=== PATIENT | male | born 1980 | race Caucasian/White ===

== ENCOUNTER → 2016-08-16 | Outpatient (CLI) | payer OTHER ==
[~2016-08-16] MED LIST: ADAL40KI INJ; CYCL0.052 OP; LITH1TAB PO; LORA-741 PO; MULT-506 PO
--- NOTE | 2016-08-16 13:48 | DIAGNOSTIC IMAGING REPORT ---
PELVIS AND BILATERAL HIP RADIOGRAPHS CLINICAL HISTORY: Ulcerative colitis. Sacroiliitis. Bilateral hip pain. COMPARISON: Hip radiographs September 28, [address] of the abdomen and pelvis February 07, 2015. FINDINGS: The sacroiliac joints are intact without evidence for ankylosis. No fracture or suspicious lesion is identified within the pelvis or the hips. There is mild joint space narrowing of both hips with osteophytosis. Pelvic calcifications likely reflect phleboliths. IMPRESSION: 1. Mild osteoarthritis of both hips. 2. Unremarkable radiographic appearance of the sacroiliac joints although erosions may be occult by radiography. Electronically signed by: Alfa Rodriguez M.D. 08/16/2016 1:46 PM
== END | disposition home or self-care (01) ==
LOC: C.RAD1850 12:44
PROVIDERS: ATTEND Internal Medicine Rheumatology
DX: K51.90 Ulcerative colitis, unspecified, without complications (principal); M46.1 Sacroiliitis, not elsewhere classified

== ENCOUNTER → 2017-02-16 | Outpatient (CLI) | payer BC ==
[2017-02-16 13:28] LABS: HEMATOCRIT 42.6 % (42-52); MEAN CELL VOLUME 91.6 fL (80-100); MEAN CORPUSCULAR HEMOGLOBIN 31.4 pg (25-34); MEAN CORPUSCULAR HGB CONC 34.3 g/dl (32-36); MEAN PLATELET VOLUME 10.6 fL (7.4-10.4); PLATELET COUNT 217 K/uL (130-400); RED BLOOD COUNT 4.65 M/uL (4.7-6.1); WHITE BLOOD COUNT 4.66 K/uL (4.8-10.8)
[2017-02-16 14:06] LABS: ESTIMATED AVERAGE GLUCOSE 88 mg/dl; HA1C FLAG Normal (Normal)
[2017-02-16 14:30] LABS: ALT/SGPT 28 U/L (12-78); AST/SGOT 23 U/L (15-37); BLOOD UREA NITROGEN 16 mg/dl (7-18); BUN/CREATININE RATIO 13.6 (10-20); CALCIUM 9.3 mg/dl (8.5-10.1); CARBON DIOXIDE 23 mmol/L (21-32); CHLORIDE 110 mmol/L (98-107); GLUCOSE 78 mg/dl (70-99); MAGNESIUM 2.2 mg/dl (1.8-2.4); POTASSIUM 3.5 mmol/L (3.5-5.1); SODIUM 139 mmol/L (136-145); TRIGLYCERIDES 56 mg/dl (0-150); VERY LOW DENSITY LIPOPROT CALC 11 mg/dl
[2017-02-16 14:38] LABS: ALB/GLOB RATIO 1.1 (0.9-2); ALKALINE PHOSPHATASE 54 U/L (45-117); CHOLESTEROL 128 mg/dl (0-200); HDL CHOLESTEROL 63 mg/dl; THYROID STIMULATING HORMONE 0.947 uIu/ml (0.300-4.500)
== END | disposition home or self-care (01) ==
LOC: C.LABBC 09:49
PROVIDERS: ATTEND Internal Medicine Cardiovascular Disease
DX: R07.9 Chest pain, unspecified (principal); R00.2 Palpitations

== ENCOUNTER → 2017-11-05 | Outpatient (CLI) | payer BC ==
[2017-11-05 12:55] LABS: BASO % 0.5 %; BASO ABS # 0.02 K/uL (0-0.2); EOS ABS # 0.08 K/uL (0-0.5); HEMATOCRIT 39.9 % (42-52); HEMOGLOBIN 14.7 g/dL (14.0-18.0); LYMPH % 45.3 %; LYMPH ABS # 1.85 K/uL (1.2-3.4); MEAN CELL VOLUME 91.7 fL (80-100); MEAN CORPUSCULAR HEMOGLOBIN 33.8 pg (25-34); MEAN CORPUSCULAR HGB CONC 36.8 g/dl (32-36); MEAN PLATELET VOLUME 10.9 fL (7.4-10.4); MONO % 11.8 %; MONO ABS # 0.48 K/uL (0.11-0.59); NEUT % 40.4 %; NEUT ABS # 1.65 K/uL (1.4-6.5); PLATELET COUNT 197 K/uL (130-400); RED CELL DISTRIBUTION WIDTH CV 11.6 % (11.5-14.5); RED CELL DISTRIBUTION WIDTH SD 39.1 fL (36.4-46.3); WHITE BLOOD COUNT 4.08 K/uL (4.8-10.8)
[2017-11-05 13:27] LABS: ALT/SGPT 22 U/L (12-78); BLOOD UREA NITROGEN 16 mg/dl (7-18); CALCIUM 8.7 mg/dl (8.5-10.1); CARBON DIOXIDE 25 mmol/L (21-32); CHOLESTEROL 110 mg/dl (0-200); CREATININE 1.07 mg/dl (0.60-1.40); GLUCOSE 78 mg/dl (70-99); POTASSIUM 3.6 mmol/L (3.5-5.1); SODIUM 140 mmol/L (136-145)
[2017-11-05 13:38] LABS: ALKALINE PHOSPHATASE 71 U/L (45-117); AST/SGOT 17 U/L (15-37); LDL CHOLESTEROL CALCULATED 50 mg/dl; TOTAL PROTEIN 7.9 gm/dl (6.4-8.2)
== END | disposition home or self-care (01) ==
LOC: C.LAB 11:30
PROVIDERS: ATTEND Nurse Practitioner Family
DX: F31.13 Bipolar disorder, current episode manic without psychotic features, severe (principal); H53.9 Unspecified visual disturbance; R51 Headache; Z78.9 Other specified health status

== ENCOUNTER 2025-07-29 17:54 | Observation (INO) ==
--- NOTE | 2025-07-29 18:26 | Emergency Department Note ---
Impression & Plan Herpes zoster, Cellulitis ED Provider Note NAME: LEXIS PRESLEY AGE: 44 SEX: M : 1980 ARRIVES VIA: Walk-In INFORMANT: Patient, ED PROVIDER(S): Guero Kennedy DO CHIEF COMPLAINT: Rash HPI: The patient is a 44-year-old male who presented to the emergency department for an evaluation. The patient has been treated for 5 days for a rash on his face by his primary care physician. This was felt to be secondary to shingles. The patient does take Humira and has had bilateral shingles in the past. It is mostly on his face. The patient was sent to the emergency department today from the primary care physician's office to receive IV antivirals and to be admitted. ROS: See above HPI for pertinent positives & negatives. A total of 10 systems reviewed and were otherwise negative. PAST MEDICAL HISTORY: See Below PAST SURGICAL HISTORY: See Below FAMILY HISTORY: See Below SOCIAL HISTORY: See Below HOME MEDICATIONS: See Below ALLERGIES: See Below VITALS: See Below PHYSICAL EXAMINATION: GENERAL: Patient is awake alert in no acute distress patient is resting comfortably and showing no signs of anxiety EYES: The conjunctivae are clear. The pupils are round and reactive. EARS, NOSE, MOUTH AND THROAT: The nose is without any evidence of any deformity. NECK: The neck is nontender and supple. RESPIRATORY: Normal respiratory effort is noted there is no evidence of wheezing rhonchi or rales CARDIOVASCULAR: Regular rate and rhythm noted there no murmurs rubs or gallops normal S1 normal S2. GASTROINTESTINAL: The abdomen is soft. Abdomen is nontender. MUSCULOSKELETAL/EXTREMITIES: There is no evidence of gross deformity full range of motion is noted in the hips and shoulders. SKIN: There is a pustular rash over the face that is bilateral. There is no involvement of the eye that is obvious. There is no mucous membrane involvement. NEUROLOGIC: Patient is awake alert and oriented x3. Gait was steady. MEDICAL DECISION MAKING: The patient is a 44-year-old male who presented to the emergency department for an evaluation of rash. The patient was diagnosed with shingles as an outpatient. He does take a biologic medication and was started on valacyclovir. The patient returns emergency department after being seen in his outpatient primary care physician's office. He was sent to the emergency department for further evaluation and for possible admission. I discussed the case with the outpatient covering physician as well as the [facility] hospitalist. Triage Nursing notes reviewed. Prior medical records reviewed Vital Signs: reviewed and remarkable for no significant abnormalities Differential diagnosis: Contact dermatitis, viral exanthem, urticaria, allergic reaction, Keen- Deshawn syndrome, toxic epidermal necrolysis, erythema multiforme, cellulitis, scabies, HSV, varicella, zoster, eczema, staph scalded skin syndrome, fungal infection, as well as other pathologies. ER treatment provided: See below Diagnostics interpreted by me: ECG: none Cardiac Monitoring: An order was placed for continuous cardiac monitoring. The monitor shows a rate of 74 bpm with sinus rhythm. Laboratory studies: As stated above and show below. Imaging studies: See below. Radiographic imaging was reviewed by myself Consultation(s): I discussed this case with Dr. Alvarez who is on for the [facility]. I discussed this case with Dr. Muhammad [facility]. Past Med/Surg History Problem List (Updated 07/29/25 @ 19:50 by Guero Kennedy DO) Cellulitis (Acute) Herpes zoster (Acute) Hypertrophy of both inferior nasal turbinates Nasal septal deviation External nasal valve collapse, static Mechanical low back pain Arthritis Vitamin D deficiency Non-specific colitis Lumbago Left knee pain IBS (irritable bowel syndrome) Diarrhea Bipolar disorder Arthritis Tear of MCL (medial collateral ligament) of knee ACL tear Ulcerative colitis on humira Mass of left forearm Peroneal tendinitis, right leg Dysfunction of left rotator cuff Paresthesia (Acute) Non-cardiac chest pain (Acute) Abdominal pain, left upper quadrant (Acute) Abdominal pain (Acute 09/18/13) Medical History Hx of bipolar disorder Splenic infarct hx, years ago, seen on imaging, nothing further IBS (irritable bowel syndrome) Ulcerative colitis Arthritis Vertigo hx, no recent issues Palpitations hx, cardiac testing, no findings Dysphagia hx, "once in awhile with breads" Surgical History History of nasal septoplasty w/bilateral turbinate reduction and repair of bilateral nasal vestibular stenosis-10/04/24-Dr. Dixon Hx of cardiac cath ~2013 or earlier, palpitations, [facility] [place], no stents; no longer sees cardiology Hx of colonoscopy most recent 2022 Status post excisional biopsy 12/18/2020 Family History Father Hypertension Sister Breast cancer Mother Cancer Brother Diabetes Grandmother (Maternal) Colorectal cancer Other Stroke Social History Smoking Status: Never smoker Second Hand Exposure: No; Do You Dip or Chew Tobacco: No; Hx Alcohol Use: Yes Alcohol Intake Frequency: Monthly or Less Hx Substance Use: No Preferred Language: Wolof Communication Ability: Effective Deck Cadet Required: No Beliefs That Will Affect Care: None marital status: Current Living Situation: Spouse and Family current occupational status: employed current occupation: [employer]) How many Children do You have: 2 Feels Safe at Home: Yes Diet: vegan during the past year weight has: remained stable Assistive Devices: Glasses Allergies Allergies Allergy/AdvReac Type Severity Reaction Status Date / Time No Known Drug Allergies Allergy Verified 07/29/25 19:29 DUST MITES Allergy Intermediate Congested Uncoded 07/29/25 19:30 Home Meds Home Medications Medication Instructions Recorded Confirmed adalimumab 40 mg/0.8 mL 40 mg subcut Q14D 02/24/21 07/29/25 subcutaneous pen kit (Humira Pen) multivitamin 1 tab PO DAILY 11/18/22 07/29/25 tobramycin 0.3 %-lotepred 0.5 % 1 drp ophthalmic (eye) .COMPLEX 06/28/25 07/29/25 eye drops,suspension PRN Eye Irritation cholecalciferol (vitamin D3) 50 50 mcg PO DAILY 07/29/25 07/29/25 mcg (2,000 unit) capsule (Vitamin D3) valacyclovir 1 gram tablet 1,000 mg PO TID 07/29/25 07/29/25 Previous Rx's Medication Instructions Recorded albuterol sulfate 90 mcg/actuation 2 puff inhalation Q4H PRN 03/15/25 aerosol inhaler shortness of breath #1 inhaler azelastine 137 mcg (0.1 %) nasal 2 spray intranasal DAILY #30 mL 03/15/25 spray mometasone 100 mcg/actuation HFA 2 inh inhalation DAILY #1 inhaler 03/15/25 aerosol inhaler (Asmanex HFA) Results & Data (ED) Vital Signs Vital Signs - 24 hr 07/29/25 17:55 07/29/25 18:36 07/29/25 18:43 Temperature 36.6 C Temperature Source Temporal Artery Scan Pulse Rate 67 68 Pulse Rate [Apical] 72 Pulse Rhythm [Apical] Regular Pulse Strength [Apical] Normal Respiratory Rate 18 22 Respiratory Effort / Characteristics Non-Labored Spontaneous Respiratory Depth Normal Respiratory Pattern Regular Blood Pressure 112/73 Blood Pressure [Right Arm] 104/73 Blood Pressure Mean 86 Blood Pressure Mean [Right Arm] 83 Blood Pressure Position [Right Arm] Sitting Pulse Oximetry 99 98 Oxygen Delivery Method Room Air Sepsis Recent Fever Within 48 Hours No Sepsis New/Unexplained Change in Mental Status N/A Sepsis Action Taken by Nursing No Action Required 07/29/25 19:21 Temperature Temperature Source Pulse Rate Pulse Rate [Apical] 74 Pulse Rhythm [Apical] Regular Pulse Strength [Apical] Normal Respiratory Rate 18 Respiratory Effort / Characteristics Non-Labored Spontaneous Respiratory Depth Normal Respiratory Pattern Regular Blood Pressure Blood Pressure [Right Arm] 136/83 Blood Pressure Mean Blood Pressure Mean [Right Arm] 100 Blood Pressure Position [Right Arm] Sitting Pulse Oximetry 100 Oxygen Delivery Method Room Air Sepsis Recent Fever Within 48 Hours Sepsis New/Unexplained Change in Mental Status Sepsis Action Taken by Assisted Medications Current Medication List: was personally reviewed by me Laboratory Data Attestation: I reviewed the patient's lab results. 07/29/25 18:27 07/29/25 18:27 Lab Results 07/29/25 07/29/25 Range/Units 18:27 18:31 WBC 6.79 (4.8-10.8) K/ul RBC 4.40 L (4.70-6.10) M/uL Hgb 14.5 (14.0-18.0) g/dL Hct 39.7 L (42.0-52.0) % MCV 90.2 (80.0-100.0) fL MCH 33.0 (25.0-34.0) pg MCHC 36.5 H (32.0-36.0) g/dL RDW Std Deviation 36.1 L (36.4-46.3) fL RDW Coeff of Sugar 11.4 L (11.5-14.5) % Plt Count 346 (130-400) K/uL MPV 9.6 (9.4-12.4) fL Immature Gran % (Auto) 0.4 % Neut % (Auto) 40.2 % Lymph % (Auto) 45.2 % [place] % (Auto) 9.6 % Eos % (Auto) 4.0 % Baso % (Auto) 0.6 % Neut # (Auto) 2.73 (1.40-6.50) K/uL Lymph # (Auto) 3.07 (1.20-3.40) K/uL [place] # (Auto) 0.65 H (0.11-0.59) K/uL Eos # (Auto) 0.27 (0.00-0.50) K/uL Baso # (Auto) 0.04 (0.00-0.20) K/uL Immature Gran # (Auto) 0.03 (0.01-0.20) K/uL ESR 25 H (0-15) mm/hr Sodium 138 (136-145) mmol/L Potassium 3.7 (3.5-5.1) mmol/L Chloride 108 H (98-107) mmol/L Carbon Dioxide 23 (21-32) mmol/L Anion Gap 7 (3-11) BUN 20 (6-23) mg/dl Creatinine 1.18 (0.6-1.4) mg/dl Est Cr Clr Drug Dosing 100.1 ml/min eGFR 79.01 BUN/Creatinine Ratio 16.9 (10-20) Glucose 82 (70-99(Fasting)) mg/dl Lactate 1.0 (0.4-2.0) mmol/L Calcium 9.5 (8.6-10.3) mg/dl Total Bilirubin 0.5 (0.2-1.0) mg/dl AST 15 (13-39) U/L ALT 9 (7-52) U/L Alkaline Phosphatase 49 (34-104) U/L Total Protein 7.9 (6.0-8.3) gm/dl Albumin 4.0 (3.4-5.0) gm/dl Globulin 3.9 (2.5-4.0) gm/dl Albumin/Globulin Ratio 1.0 (0.9-2) Procalcitonin < 0.02 (0-0.5) ng/ml Urine Color Yellow Urine Appearance Clear (Clear) Urine pH 7.5 (4.5-7.5) Ur Specific [place] 1.019 (1.000-1.030) Urine Protein Negative (Negative) Urine Glucose (UA) Negative (Negative) Urine Ketones Trace H (Negative) Urine Blood Negative (Negative) Urine Nitrite Negative (Negative) Urine Bilirubin Negative (Negative) Urine Urobilinogen Negative (Negative) Ur Leukocyte Esterase Negative (Negative) Urine Comment Administered Medications Discontinued Medications Ceftriaxone Sodium (Rocephin) 2,000 mg in 50 mls @ 100 mls/hr IV NOW STA Stop: 07/29/25 19:45 Last Admin: 07/29/25 19:29 Dose: 100 mls/hr Documented By: YVES Discharge Plan Visit Data Chief Complaint: Rash Stated Complaint: SHINGLES ED Provider: Guero Kennedy Discharge Problem: Herpes zoster, Cellulitis Patient Disposition: Being Evaluated by Hospitalist Condition: Fair Forms Stand Alone Forms: My [facility] cheerapp Prescriptions Prescriptions: No Action Humira Pen 40 mg/0.8 mL pen injector kit 40 mg subcut Q14D Patient Comments: next injection around 07/14/24 tobramycin-lotepred 0.3-0.5 % drops,suspension 1 drp ophthalmic (eye) .COMPLEX PRN (Reason: Eye Irritation) Rx Instructions: 1-2 drops to affected eye PRN; while awake azelastine 137 mcg (0.1 %) spray,non-aerosol 2 spray intranasal DAILY Qty: 30 11RF albuterol sulfate 90 mcg/actuation HFA aerosol inhaler 2 puff inhalation Q4H PRN (Reason: shortness of breath) Qty: 1 3RF Asmanex HFA 100 mcg/actuation HFA aerosol inhaler 2 inh inhalation DAILY Qty: 1 11RF multivitamin Tablet 1 tab PO DAILY valacyclovir 1 gram tablet 1,000 mg PO TID Rx Instructions: FOR 7 DAY; PATIENT IS ON DAY 6 WITH FOUR TABLETS REMAINING cholecalciferol (vitamin D3) [Vitamin D3] 50 mcg (2,000 unit) Capsule 50 mcg PO DAILY Referrals Referrals: PCP,NO [Primary Care Provider] -
[2025-07-29 18:45] LABS: Hematocrit (blood only) 39.7 % (42.0-52.0); Hemoglobin 14.5 g/dL (14.0-18.0); Immature Granulocytes # (auto) 0.03 K/uL (0.01-0.20); Immature Granulocytes % (auto) 0.4 %; Mean Corpuscular Hemoglobin 33.0 pg (25.0-34.0); Mean Corpuscular Volume 90.2 fL (80.0-100.0); Platelet Count 346 K/uL (130-400); RDW Standard Deviation 36.1 fL (36.4-46.3); Red Blood Count 4.40 M/uL (4.70-6.10); White Blood Count 6.79 K/ul (4.8-10.8)
[2025-07-29 18:51] LABS: Appearance Urine Clear (Clear); Glucose Urine UA Negative (Negative)
[2025-07-29 19:02] LABS: Alanine Aminotransferase 9 U/L (7-52); Albumin Globulin Ratio 1.0 (0.9-2); Albumin Level 4.0 gm/dl (3.4-5.0); Alkaline Phosphatase 49 U/L (34-104); Anion Gap 7 (3-11); Bilirubin,Total 0.5 mg/dl (0.2-1.0); Blood Urea Nitrogen 20 mg/dl (6-23); Calcium 9.5 mg/dl (8.6-10.3); Carbon Dioxide 23 mmol/L (21-32); Chloride 108 mmol/L (98-107); Creatinine Clr Calc Pharmacy 100.1 ml/min; Globulin 3.9 gm/dl (2.5-4.0); Glucose 82 mg/dl (70-99(Fasting)); Potassium 3.7 mmol/L (3.5-5.1); Sodium 138 mmol/L (136-145); Total Protein 7.9 gm/dl (6.0-8.3)
[2025-07-29] MEDS: cefTRIAXone SODIUM 2,000 MG/50 ML BAG IV STA (19:29)
--- NOTE | 2025-07-29 20:07 | History & Physical Report ---
Date of Service July 29, 2025 Assessment & Plan (1) Herpes zoster: (2) Cellulitis: Plan 44yo male with history of ulcerative colitis on adalimumab therapy presenting with worsening zoster rash. Patient has been taking Valacyclovir at home. Admission has been requested by patient's covering PCP for IV anti-virals due to immunocompromised status #Herpes Zoster- patient is afebrile, HD stable and non-toxic in appearance. Progressive rash -Observation to medical -Maintain isolation precautions -Acyclovir 950mg IV q 8 hours -Tylenol PRN pain #Possible cellulitis -Ceftriaxone 2gm IV daily History of Present Illness Chief Complaint: progression of facial rash Primary Care Provider: NO PCP Stas Pablo is a 44yo male with history of UC on Adalimumab injections presenting with progression of facial rash. Patient noted a blistering rash on the right side of his face approximately one week ago. He was seen by his PCP and started on Valcyclovir. He has been taking this as prescribed. Today patient noted worsening rash involving the left side of his face as well. He contacted the PCP and was directed to come to the ER due to concern for progressive infection, immunocompromised state. He had some pain and burning to the area initially but now the rash is more itchy. He denies sores in the mouth, no visual disturbances. No fever, chills, chest pain, cough, SOB In the ER patient is afebrile, HD stable, non-toxic in appearance ER Course: Ceftriaxone 2gm Acyclovir 700mg Allergies Allergy/AdvReac Type Severity Reaction Status Date / Time house dust mite Allergy Intermediate Congested Verified 07/29/25 21:40 No Known Drug Allergies Allergy Unknown Unknown Verified 07/29/25 21:40 Home Medications Medication Instructions Recorded Confirmed Type adalimumab 40 mg/0.8 mL 40 mg subcut Q14D 02/24/21 07/29/25 History subcutaneous pen kit (Humira Pen) multivitamin 1 tab PO DAILY 11/18/22 07/29/25 History albuterol sulfate 90 mcg/actuation 2 puff inhalation Q4H PRN 03/15/25 07/29/25 Rx aerosol inhaler shortness of breath #1 inhaler azelastine 137 mcg (0.1 %) nasal 2 spray intranasal DAILY #30 mL 03/15/25 07/29/25 Rx spray mometasone 100 mcg/actuation HFA 2 inh inhalation DAILY #1 inhaler 03/15/25 07/29/25 Rx aerosol inhaler (Asmanex HFA) tobramycin 0.3 %-lotepred 0.5 % 1 drp ophthalmic (eye) .COMPLEX 06/28/25 07/29/25 History eye drops,suspension PRN Eye Irritation cholecalciferol (vitamin D3) 50 50 mcg PO DAILY 07/29/25 07/29/25 History mcg (2,000 unit) capsule (Vitamin D3) valacyclovir 1 gram tablet 1,000 mg PO TID 07/29/25 07/29/25 History Past Med/Surg History Problem List Cellulitis (Acute) Herpes zoster (Acute) Hypertrophy of both inferior nasal turbinates Nasal septal deviation External nasal valve collapse, static Mechanical low back pain Arthritis Vitamin D deficiency Non-specific colitis Lumbago Left knee pain IBS (irritable bowel syndrome) Diarrhea Bipolar disorder Arthritis Tear of MCL (medial collateral ligament) of knee ACL tear Ulcerative colitis on humira Mass of left forearm Peroneal tendinitis, right leg Dysfunction of left rotator cuff Paresthesia (Acute) Non-cardiac chest pain (Acute) Abdominal pain, left upper quadrant (Acute) Abdominal pain (Acute 09/18/13) Medical History Hx of bipolar disorder Splenic infarct hx, years ago, seen on imaging, nothing further IBS (irritable bowel syndrome) Ulcerative colitis Arthritis Vertigo hx, no recent issues Palpitations hx, cardiac testing, no findings Dysphagia hx, "once in awhile with breads" Surgical History History of nasal septoplasty w/bilateral turbinate reduction and repair of bilateral nasal vestibular stenosis-10/04/24-Dr. Dixon Hx of cardiac cath ~2013 or earlier, palpitations, [facility] [place], no stents; no longer sees car diology Hx of colonoscopy most recent 2022 Status post excisional biopsy 12/18/2020 Family History Father Hypertension Sister Breast cancer Mother Cancer Brother Diabetes Grandmother (Maternal) Colorectal cancer Other Stroke Social History Smoking Status: Never smoker Second Hand Exposure: No; Do You Dip or Chew Tobacco: No; Hx Alcohol Use: Yes Alcohol Intake Frequency: Monthly or Less Hx Substance Use: No Preferred Language: Lithuanian Communication Ability: Effective Customs Verifier Required: No Beliefs That Will Affect Care: None marital status: Current Living Situation: Spouse and Family current occupational status: employed current occupation: labor relations analyst How many Children do You have: 2 Feels Safe at Home: Yes Diet: vegan during the past year weight has: remained stable Assistive Devices: Glasses Review of Systems Review of Systems: All systems reviewed & are unremarkable except as noted in HPI & below Physical Exam Physical Exam: General: patient resting comfortably, NAD, non-toxic in appearance, AA&O x 4 Skin: patient with coalescing pustular rash with surrounding erythema, no fluid filled blisters, no bleeding HEENT: NC/AT, PERRL, EOMI, anicteric sclera, conjunctiva without injection, external ear normal to inspection and nontender, nares patent, moist mucus membranes, dentition intact, no oropharyngeal lesions, neck supple, trachea midline, no LAD, no thyromegaly, no JVD Heart: +S1/S2, regular, no m/r/g Lungs: equal air entry bilaterally, no rales/rhonchi/wheezes Abd: +BS, soft, NT/ND, no masses/organomegaly/ascites Ext: warm, 2+ pulses in UE/LE bilaterally, no clubbing/cyanosis or edema Neuro: nonfocal, patient AA&O x 4, speech intact, no facial droop, moving all extremities on command with equal strength 5/5 Results & Data Results & Data Vital Signs (Past 12 Hours) Vital Signs Temp Pulse Pulse Resp BP BP Pulse Ox 07/29/25 19:21 74 18 136/83 100 07/29/25 18:43 72 22 104/73 98 07/29/25 18:36 68 07/29/25 17:55 36.6 C 67 18 112/73 99 O2 Del Method 07/29/25 19:21 Room Air 07/29/25 18:43 Room Air 07/29/25 18:36 07/29/25 17:55 Laboratory Results Laboratory Results WBC 6.79 K/ul (4.8-10.8) 07/29/25 18: RBC 4.40 M/uL (4.70-6.10) L 07/29/25 18: Hgb 14.5 g/dL (14.0-18.0) 07/29/25 18: Hct 39.7 % (42.0-52.0) L 07/29/25 18: MCV 90.2 fL (80.0-100.0) 07/29/25 18: MCH 33.0 pg (25.0-34.0) 07/29/25 18: MCHC 36.5 g/dL (32.0-36.0) H 07/29/25 18: RDW Std Deviation 36.1 fL (36.4-46.3) L 07/29/25 18: RDW Coeff of Sugar 11.4 % (11.5-14.5) L 07/29/25 18: Plt Count 346 K/uL (130-400) 07/29/25 18: MPV 9.6 fL (9.4-12.4) 07/29/25 18: Immature Gran % (Auto) 0.4 % 07/29/25 18: Neut % (Auto) 40.2 % 07/29/25 18: Lymph % (Auto) 45.2 % 07/29/25 18: [place] % (Auto) 9.6 % 07/29/25 18: Eos % (Auto) 4.0 % 07/29/25 18: Baso % (Auto) 0.6 % 07/29/25 18: Neut # (Auto) 2.73 K/uL (1.40-6.50) 07/29/25 18: Lymph # (Auto) 3.07 K/uL (1.20-3.40) 07/29/25 18: [place] # (Auto) 0.65 K/uL (0.11-0.59) H 07/29/25 18: Eos # (Auto) 0.27 K/uL (0.00-0.50) 07/29/25 18: Baso # (Auto) 0.04 K/uL (0.00-0.20) 07/29/25 18: Immature Gran # (Auto) 0.03 K/uL (0.01-0.20) 07/29/25 18:27 ESR 25 mm/hr (0-15) H 07/29/25 18:27 Sodium 138 mmol/L (136-145) 07/29/25 18: Potassium 3.7 mmol/L (3.5-5.1) 07/29/25 18: Chloride 108 mmol/L (98-107) H 07/29/25 18: Carbon Dioxide 23 mmol/L (21-32) 07/29/25 18: Anion Gap 7 (3-11) 07/29/25 18: BUN 20 mg/dl (6-23) 07/29/25 18: Creatinine 1.18 mg/dl (0.6-1.4) 07/29/25 18: Est Cr Clr Drug Dosing 100.1 ml/min 07/29/25 18: eGFR 79.01 07/29/25 18: BUN/Creatinine Ratio 16.9 (10-20) 07/29/25 18: Glucose 82 mg/dl (70-99(Fasting)) 07/29/25 18: Lactate 1.0 mmol/L (0.4-2.0) 07/29/25 18: Calcium 9.5 mg/dl (8.6-10.3) 07/29/25 18: Total Bilirubin 0.5 mg/dl (0.2-1.0) 07/29/25 18: AST 15 U/L (13-39) 07/29/25 18: ALT 9 U/L (7-52) 07/29/25 18: Alkaline Phosphatase 49 U/L (34-104) 07/29/25 18: C-Reactive Protein < 0.50 mg/dl (0-0.5) 07/29/25 18: Total Protein 7.9 gm/dl (6.0-8.3) 07/29/25 18: Albumin 4.0 gm/dl (3.4-5.0) 07/29/25 18: Globulin 3.9 gm/dl (2.5-4.0) 07/29/25 18: Albumin/Globulin Ratio 1.0 (0.9-2) 07/29/25 18: Procalcitonin < 0.02 ng/ml (0-0.5) 07/29/25 18: Urine Color Yellow 07/29/25 18: Urine Appearance Clear (Clear) 07/29/25 18: Urine pH 7.5 (4.5-7.5) 07/29/25 18: Ur Specific [place] 1.019 (1.000-1.030) 07/29/25 18: Urine Protein Negative (Negative) 07/29/25 18: Urine Glucose (UA) Negative (Negative) 07/29/25 18: Urine Ketones Trace (Negative) H 07/29/25 18: Urine Blood Negative (Negative) 07/29/25 18: Urine Nitrite Negative (Negative) 07/29/25 18: Urine Bilirubin Negative (Negative) 07/29/25 18: Urine Urobilinogen Negative (Negative) 07/29/25 18: Ur Leukocyte Esterase Negative (Negative) 07/29/25 18: Urine Comment 07/29/25 18:31 PG Care Time/CCT Total # of Minutes Spent Total Time Spent with Patient: Total time spent is greater than 50% in coordination of care (as documented) at patient's floor/unit and/or counseling patient: Coding Level of Care Code 65549 INT INP/OBS CARE 2/55MIN Diagnoses Herpes zoster B02.9 Cellulitis L03.90
[2025-07-29] MEDS: ACYCLOVIR SOD 700 MG in DEXTROSE 5% 100 ML IV ONE (20:12)
[2025-07-29] MEDS ORDERED: DOCUSATE SODIUM 100 MG CAP PO PRN (21:35)
[2025-07-29] MEDS ORDERED: ACETAMINOPHEN 325 MG TAB PO PRN (21:35)
[2025-07-29] MEDS ORDERED: ONDANSETRON INJ 2 MG/ML 2 ML VIAL IV PRN (21:35)
[2025-07-29] MEDS: LACTATED RINGER'S 1,000 ML IV SCH (21:58)
[2025-07-30] MEDS: ACYCLOVIR SOD 950 MG in DEXTROSE 5% 250 ML IV SCH (03:57)
[2025-07-30 07:51] LABS: Hematocrit (blood only) 36.2 % (42.0-52.0); Hemoglobin 13.4 g/dL (14.0-18.0); Mean Corpuscular Hemoglobin 34.2 pg (25.0-34.0); Mean Corpuscular Volume 92.3 fL (80.0-100.0); Platelet Count 275 K/uL (130-400); RDW Standard Deviation 37.6 fL (36.4-46.3); Red Blood Count 3.92 M/uL (4.70-6.10); White Blood Count 5.44 K/ul (4.8-10.8)
[2025-07-30 08:05] LABS: Anion Gap 5.0 (3-11); Blood Urea Nitrogen 14.0 mg/dl (6-23); Calcium 8.8 mg/dl (8.6-10.3); Carbon Dioxide 23.0 mmol/L (21-32); Chloride 111.0 mmol/L (98-107); Creatinine Clr Calc Pharmacy 109.4 ml/min; Glucose 91.0 mg/dl (70-99(Fasting)); Potassium 4.1 mmol/L (3.5-5.1); Sodium 139.0 mmol/L (136-145)
[2025-07-30] MEDS: AZELASTINE HCL 0.1% NASAL 200 SPRAYS/27,400 MCG BTL SCH (08:20)
--- NOTE | 2025-07-30 08:21 | Infectious Disease Consult ---
Date of Consultation July 30, 2025 Assessment & Plan (1) Herpes zoster: Plan Problems: #Disseminated zoster #UC on adalimumab Micro: None Abx: Acyclovir 07/29 - present Ceftriaxone 07/29 - present 44 yo M with history of UC on adalimumab who presented on 07/29 with progression of herpes zoster facial rash. He noted a blistering rash on the R side of his face ~1 week ago, for which he saw his PCP and was started on valacyclovir on ~07/24. Pt reports that around 1-2 days after starting valacyclovir, he noticed spreading of the rash to his L face and forehead. On 07/29, he saw his PCP and was advised to present to the ED due to concern about the spreading rash. On presentation, pt was afebrile, VSS. Labs showed no leukocytosis. He was started on IV acyclovir. On my evaluation 07/30, pt reports no active drainage from his lesions, and has some scattered fluid filled blisters but overall improved. Feels the bilateral rash is improving compared to pictures he took of the rash from a few days ago. Recommendations: - Can continue acyclovir 10 mg/kg q8h. Lesions seem to be overall improving, so anticipate being able to switch back to valacyclovir 1 g PO TID later today or tomorrow through 08/07 (this would be a 14 day course including the PO valacyclovir he received prior to admission, or a 10 day course from initiation of IV acyclovir) - Discontinued ceftriaxone, think superimposed cellulitis is unlikely Discussed with Dr. Guy. Will sign off. Consultation Information Consultation was provided via telemedicine using two-way real-time interactive telecommunication between the patient and the telemedicine provider. For the duration of the visit, the provider was performing the assessment from a different facility than the patient. This includesuse of bluetooth stethoscope forauscultationperformed by the telepresenter that the telemedicine provider can hear if described in the physical exam. Apprentice Cook contact information: Please call [facility] . (Phone Number For Physician Use Only) After establishing a telemedicine visit, patient was: Patient was verified with two unique identifiers, Patient/authorized rep acknowledged consent and understanding and Gave permission to continue telehealth session Time Spent with Patient: Initial => 55 min History of Present Illness Reason for Consultation: Herpes zoster Attending Physician: Julian Guy MD History of Present Illness 44 yo M with history of UC on adalimumab who presented on 07/29 with progression of herpes zoster facial rash. He noted a blistering rash on the R side of his face ~1 week ago, for which he saw his PCP and was started on valacyclovir on ~07/24. Pt reports that around 1-2 days after starting valacyclovir, he noticed spreading of the rash to his L face and forehead. On 07/29, he saw his PCP and was advised to present to the ED due to concern about the spreading rash. On presentation, pt was afebrile, VSS. Labs showed no leukocytosis. He was started on IV acyclovir. On my evaluation 07/30, pt reports no active drainage from his lesions, and has some scattered fluid filled blister but overall improved. Feels the bilateral rash is improving compared to pictures he took of the rash from a few days ago. Allergies Allergy/AdvReac Type Severity Reaction Status Date / Time house dust mite Allergy Intermediate Congested Verified 07/29/25 21:40 No Known Drug Allergies Allergy Unknown Unknown Verified 07/29/25 21:40 Home Medications Medication Instructions Recorded Confirmed Type adalimumab 40 mg/0.8 mL 40 mg subcut Q14D 02/24/21 07/29/25 History subcutaneous pen kit (Humira Pen) multivitamin 1 tab PO DAILY 11/18/22 07/29/25 History albuterol sulfate 90 mcg/actuation 2 puff inhalation Q4H PRN 03/15/25 07/29/25 Rx aerosol inhaler shortness of breath #1 inhaler azelastine 137 mcg (0.1 %) nasal 2 spray intranasal DAILY #30 mL 03/15/25 07/29/25 Rx spray mometasone 100 mcg/actuation HFA 2 inh inhalation DAILY #1 inhaler 03/15/25 07/29/25 Rx aerosol inhaler (Asmanex HFA) tobramycin 0.3 %-lotepred 0.5 % 1 drp ophthalmic (eye) .COMPLEX 06/28/25 07/29/25 History eye drops,suspension PRN Eye Irritation cholecalciferol (vitamin D3) 50 50 mcg PO DAILY 07/29/25 07/29/25 History mcg (2,000 unit) capsule (Vitamin D3) valacyclovir 1 gram tablet 1,000 mg PO TID 07/29/25 07/29/25 History Patient History Medical History Hx of bipolar disorder Splenic infarct hx, years ago, seen on imaging, nothing further IBS (irritable bowel syndrome) Ulcerative colitis Arthritis Vertigo hx, no recent issues Palpitations hx, cardiac testing, no findings Dysphagia hx, "once in awhile with breads" Surgical History History of nasal septoplasty w/bilateral turbinate reduction and repair of bilateral nasal vestibular stenosis-10/04/24-Dr. Dixon Hx of cardiac cath ~2013 or earlier, palpitations, [facility] [place], no stents; no longer sees cardiology Hx of colonoscopy most recent 2022 Status post excisional biopsy 12/18/2020 Family History Father Hypertension Sister Breast cancer Mother Cancer Brother Diabetes Grandmother (Maternal) Colorectal cancer Other Stroke Social History Smoking Status: Never smoker Second Hand Exposure: No; Do You Dip or Chew Tobacco: No; Hx Alcohol Use: Yes Alcohol type: hard liquor Alcohol Intake Frequency: Monthly or Less Hx Substance Use: No Preferred Language: Turkmen Communication Ability: Effective Restuarant Crew Worker Required: No Beliefs That Will Affect Care: None marital status: Current Living Situation: Spouse Current Living Situation Comment: Home with current occupational status: employed current occupation: lab courier How many Children do You have: 2 Feels Safe at Home: Yes Diet: vegan during the past year weight has: remained stable Assistive Devices: Glasses Review of System A complete ROS was performed and is negative except as mentioned in the HPI. Physical Exam Physical Exam: GEN: Well-appearing, in NAD. HEENT: Normocephalic, atraumatic. RESP: No increased work of breathing SKIN: dry crusted rash on R face, scattered fluid filled blisters on L face, on erythematous base. Erythema of forehead without lesions. No lesions around eyes or ears. NEURO: Alert and oriented. Answers all questions appropriately. Speech not slurred. PSYCH: Normal mood, affect appropriate. Results & Data Vital Signs (Past 12 Hours) Vital Signs Temp Pulse Pulse Resp BP BP Pulse Ox 07/30/25 07:44 36.6 C 55 L 20 100/58 L 98 07/29/25 23:19 36.5 C 59 L 14 121/77 100 07/29/25 21:21 36.6 C 67 12 130/85 100 07/29/25 21:15 79 17 108/69 100 07/29/25 21:00 72 20 98/77 L 99 O2 Del Method 07/30/25 07:44 Room Air 07/29/25 23:19 Room Air 07/29/25 21:21 Room Air 07/29/25 21:15 Room Air 07/29/25 21:00 Laboratory Results Short CBC 07/29/25 07/30/25 Range/Units 18:27 07:13 WBC 6.79 5.44 (4.8-10.8) K/ul Hgb 14.5 13.4 L (14.0-18.0) g/dL Hct 39.7 L 36.2 L (42.0-52.0) % Plt Count 346 275 (130-400) K/uL BMP 07/29/25 07/30/25 18:27 07:13 Sodium 138 139 Potassium 3.7 4.1 Chloride 108 H 111 H Carbon Dioxide 23 23 BUN 20 14 Creatinine 1.18 1.08 Glucose 82 91 Calcium 9.5 8.8 Liver Function 07/29/25 Range/Units 18:27 Total Bilirubin 0.5 (0.2-1.0) mg/dl AST 15 (13-39) U/L ALT 9 (7-52) U/L Alkaline Phosphatase 49 (34-104) U/L Albumin 4.0 (3.4-5.0) gm/dl Urine 07/29/25 Range/Units 18:31 Urine Color Yellow Urine Appearance Clear (Clear) Urine pH 7.5 (4.5-7.5) Ur Specific Dolliver 1.019 (1.000-1.030) Urine Protein Negative (Negative) Urine Glucose (UA) Negative (Negative) Medications Administered Current Inpatient Medications Acetaminophen (Acetaminophen 325 Mg Tab) 650 mg PO Q4H PRN PRN Reason: Pain or Fever Stop: 08/28/25 21:34 Azelastine HCl (Azelastine Hcl 0.1% Nasal 200 Sprays/27,400 Mcg Btl) 2 sprays NA DAILY [facility] Stop: 08/29/25 08:59 Docusate Sodium (Docusate Sodium 100 Mg Cap) 100 mg PO BID PRN PRN Reason: Constipation Stop: 08/28/25 21:34 Ceftriaxone Sodium (Rocephin) 2,000 mg in 50 mls @ 100 mls/hr IV Q24H [facility] Stop: 08/06/25 19:59 Acyclovir Sodium 950 mg/ (Dextrose) 269 mls @ 250 mls/hr IV Q8H [facility]; Protocol Stop: 08/06/25 03:59 Last Infusion: 07/30/25 05:04 Dose: Infused Ondansetron HCl (Ondansetron Inj 2 Mg/Ml 2 Ml Vial) 4 mg IV Q6H PRN PRN Reason: Nausea And Vomiting Stop: 08/28/25 21:34
--- NOTE | 2025-07-30 09:35 | Hospitalist Progress Note ---
Date of Service July 30, 2025 Assessment & Plan (1) Herpes zoster: Plan: -Acyclovir 950mg IV q 8 hours -ID consult appreciated (2) Cellulitis: Plan: -con't rocephin Plan 44yo male with history of ulcerative colitis on adalimumab therapy presenting with worsening zoster rash. Patient has been taking Valacyclovir at home. Admission has been requested by patient's covering PCP for IV anti-virals due to immunocompromised status Admission and Anticipated Discharge Date Admission Date: July 29, 2025 Subjective No events overnight. Pt resting comfortably in bed. Review of Systems Review of Systems: CONST: Negative for fever, body aches and chills. HENT: Negative for neck pain/stiffness, headache, congestion, sore throat, swelling. EYES: Negative for discharge/pain or vision changes. RESP: Negative for cough/hemoptysis and shortness of breath. CV: Negative chest pain, difficulty breathing, palpitations. ABD: Negative pain, nausea, vomiting. : Negative increase frequency, dysuria, blood in urine or stool. MUSC: Negative for muscle aches, edema. SKIN: Negative rash, lesions/sores. NEURO: Negative headache, dizziness, weakness. Physical Exam Physical Exam: GENERAL APPEARANCE NAD, activity normal for age, well developed/ well nourished, no cyanosis, pallor, or diaphoresis. EYES lids/conjunctiva normal. EARS/NOSE/THROAT Mucous membranes moist, nares normal, lips/teeth normal uvula midline without oral pharyngeal erythema, exudate or swelling TMs normal bilaterally. No lymphangitis/lymphedema. HEAD/NECK normocephalic atraumatic, no facial trauma, neck is supple. RESPIRATORY respiratory effort normal, speaks in full sentences, no tripod position, no accessory muscle use. Lungs clear to auscultation without rhonchi, wheezes, rales CARDIAC Regular rate and rhythm, no edema. ABDOMINAL Soft, ND/NT. No evidence of fluid wave. No pulsatile masses on exam, rebound tenderness, Roca sign or pain over Mcburney's point. MUSCLES/EXTREMITIES No abnormal range of motion, no swelling. SKIN Warm, pink and dry. No rashes, dermatoses, petechiae or lesions. NEUROLOGICAL Speech is clear and appropriate. Normal level of consciousness. Gait and coordination are normal. 5/5 strength in all extremities. PSYCH Normal mood and affect. Judgement/competence is appropriate Results & Data Results & Data Vital Signs (Past 12 Hours) Vital Signs Temp Pulse Resp BP Pulse Ox O2 Del Method 07/30/25 07:44 36.6 C 55 L 20 100/58 L 98 Room Air 07/29/25 23:19 36.5 C 59 L 14 121/77 100 Room Air PG Care Time/CCT Total # of Minutes Spent Total Time Spent with Patient: Total time spent is greater than 50% in coordination of care (as documented) at patient's floor/unit and/or counseling patient: Coding Level of Care Code 75023 SUB INP/OBS CARE 2/35MIN Diagnoses Herpes zoster B02.9 Cellulitis L03.90
--- NOTE | 2025-07-30 15:39 | Discharge Summary ---
Discharge Summary Date of Service July 30, 2025 Principal Dx & Hospital Course #1 = Principal Diagnosis (1) Herpes zoster: -Acyclovir 950mg IV q 8 hours -ID consult appreciated -recommending d/c home on valacyclovir 1mg TID for 14 days (2) Cellulitis: -con't rocephin Plan 44yo male with history of ulcerative colitis on adalimumab therapy presenting with worsening zoster rash. Patient has been taking Valacyclovir at home. Admission has been requested by patient's covering PCP for IV anti-virals due to immunocompromised status Admission HPI Per Admitting Provider Stas Pablo is a 44yo male with history of UC on Adalimumab injections presenting with progression of facial rash. Patient noted a blistering rash on the right side of his face approximately one week ago. He was seen by his PCP and started on Valcyclovir. He has been taking this as prescribed. Today patient noted worsening rash involving the left side of his face as well. He contacted the PCP and was directed to come to the ER due to concern for progressive infection, immunocompromised state. He had some pain and burning to the area initially but now the rash is more itchy. He denies sores in the mouth, no visual disturbances. No fever, chills, chest pain, cough, SOB In the ER patient is afebrile, HD stable, non-toxic in appearance ER Course: Ceftriaxone 2gm Acyclovir 700mg Discharge Exam GENERAL APPEARANCE NAD, activity normal for age, well developed/ well nourished, no cyanosis, pallor, or diaphoresis. EYES lids/conjunctiva normal. EARS/NOSE/THROAT Mucous membranes moist, nares normal, lips/teeth normal uvula midline without oral pharyngeal erythema, exudate or swelling TMs normal bilaterally. No lymphangitis/lymphedema. HEAD/NECK normocephalic atraumatic, no facial trauma, neck is supple. RESPIRATORY respiratory effort normal, speaks in full sentences, no tripod position, no accessory muscle use. Lungs clear to auscultation without rhonchi, wheezes, rales CARDIAC Regular rate and rhythm, no edema. ABDOMINAL Soft, ND/NT. No evidence of fluid wave. No pulsatile masses on exam, rebound tenderness, Roca sign or pain over Mcburney's point. MUSCLES/EXTREMITIES No abnormal range of motion, no swelling. SKIN Warm, pink and dry. No rashes, dermatoses, petechiae or lesions. NEUROLOGICAL Speech is clear and appropriate. Normal level of consciousness. Gait and coordination are normal. 5/5 strength in all extremities. PSYCH Normal mood and affect. Judgement/competence is appropriate Discharge Plan Discharge Items Patient Disposition: Home - Self-Care Reason For Visit: ?ZOSTER Discharge Diagnosis: herpes zoster Condition on Discharge: Fair Activity: Resume your previous activity Non-emergency contact: Primary Care Provider Call non-emergency contact if: you have any medication questions Follow-up/Referrals: PCP,NO [Primary Care Provider] - Diet: Regular Addtl Attending Provider Instructions: Follow with with PMD in 1 week Pending Studies at Discharge: No Stand-Alone Forms: [employer], Smoking Cessation Medications and DC Order Prescriptions: New valacyclovir 1 gram tablet 1,000 mg PO TID 14 Days Qty: 42 0RF Continued Humira Pen 40 mg/0.8 mL pen injector kit 40 mg subcut Q14D Patient Comments: next injection around 07/14/24 tobramycin-lotepred 0.3-0.5 % drops,suspension 1 drp ophthalmic (eye) .COMPLEX PRN (Reason: Eye Irritation) Rx Instructions: 1-2 drops to affected eye PRN; while awake azelastine 137 mcg (0.1 %) spray,non-aerosol 2 spray intranasal DAILY Qty: 30 11RF albuterol sulfate 90 mcg/actuation HFA aerosol inhaler 2 puff inhalation Q4H PRN (Reason: shortness of breath) Qty: 1 3RF Asmanex HFA 100 mcg/actuation HFA aerosol inhaler 2 inh inhalation DAILY Qty: 1 11RF multivitamin Tablet 1 tab PO DAILY cholecalciferol (vitamin D3) [Vitamin D3] 50 mcg (2,000 unit) Capsule 50 mcg PO DAILY Discontinued valacyclovir 1 gram tablet 1,000 mg PO TID Rx Instructions: FOR 7 DAY; PATIENT IS ON DAY 6 WITH FOUR TABLETS REMAINING Discharge Orders: Discharge Order (Routine); Ordered 07/30/25 Ordered By: Julian Guy Admission Data Admit Date/Time: 07/29/25 20:15 Attending Provider: Julian Guy Admit Provider: Isabelle Muhammad Primary Care Provider: PCP,NO Other Providers: Isabelle Muhammad; Jana Limon; Hoa Bynum; Katarina Maria; Magdalena Romero; Agueda Vargas; Rhina Morgan Hospital Stay Data Consultations 07/29/25 19:48 ED Decision to Admit Stat 07/30/25 07:42 Consult Infectious Diseases Routine Pending Results Patient Have Any Pending Studies at Discharge: No Discharge Instructions Given to Patient (Per Discharging Provider) Follow with with PMD in 1 week Total Time Total Time Spent Total Time Spent (In Minutes): 50 Coding Level of Care Code 03609 INP/OBS DISCH >30 MIN Diagnoses Herpes zoster B02.9 Cellulitis L03.90
[2025-07-30] MEDS ORDERED: cefTRIAXone SODIUM 2,000 MG/50 ML BAG IV SCH (20:00)
== END 2025-07-30 20:48 | disposition home or self-care (01) ==
LOC: 2N 17:54 → ED 17:54 → SUATTDRO 20:15 → 2N 21:15